=== PATIENT | female | born 1985 | race African-American/Black ===

== ENCOUNTER 2020-10-04 20:58 | Emergency (ER) | payer MEDICAID ==
[2020-10-04] MEDS ORDERED: Sodium Chloride 0.9% 10 ML Syringe FLUSH PRN (21:14)
[2020-10-04] MEDS ORDERED: Diazepam 5 MG Tab PO ONE (21:15)
[2020-10-04] MEDS ORDERED: fentaNYL 100 MCG/2 ML SDV IVPUSH ONE (21:15)
[2020-10-04] MEDS ORDERED: Ketorolac 30 MG/ML SDV IVPUSH ONE (21:16)
--- NOTE | 2020-10-04 21:22 | EDM.PDOC ---
ED HPI GENERAL MEDICAL PROBLEM - General Time Seen by Provider: 10/04/20 21:08 Source of Information: Reports: Patient - History of Present Illness INITIAL COMMENTS - FREE TEXT/NARRATIVE: Evita is a 35 y/o female who comes to the ER with pain in the left side of her chest. She is driving from [place] to [place], [place] and has been driving since yesterday at 3 pm. She first noted the pain in her left rib region about a week ago, denied any specific injury. 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 She reports that the sx she is having today are what her sx started out like in March. She is slightly SOB, worse when she breaths in. - Related Data Allergies Allergy/AdvReac Type Severity Reaction Status Date / Time No Known Allergies Allergy Verified 10/04/20 22:09 Home Meds: Home Meds Apixaban [Eliquis] 10 mg PO BID 7 Days #28 10/04/20 [Rx] Review of Systems - Review of Systems Review Of Systems: See Below Constitutional: Reports: No Symptoms Eyes: Reports: No Symptoms Ears: Reports: No Symptoms Nose: Reports: No Symptoms Mouth/Throat: Reports: No Symptoms Respiratory: Reports: Shortness of Breath, Pleuritic Chest Pain Cardiovascular: Reports: No Symptoms GI/Abdominal: Reports: No Symptoms Genitourinary: Reports: No Symptoms Musculoskeletal: Reports: No Symptoms Skin: Reports: No Symptoms Neurological: Reports: No Symptoms Psychiatric: Reports: No Symptoms ED EXAM, GENERAL - Physical Exam Exam: See Below General Appearance: Alert, WD/WN (Adult female, appears uncomfortable and sitting on edge of ER cart for comfort.) Eye Exam: Bilateral Eye: PERRL Ears: Hearing Grossly Normal Nose: Normal Inspection Throat/Mouth: Normal Lips, Normal Voice Head: Atraumatic, Normocephalic Neck: Supple Respiratory/Chest: No Respiratory Distress, Lungs Clear, Other (+tenderness palpated along left rib region adn muscle tightness) Cardiovascular: Regular Rate, Rhythm, No Murmur GI/Abdominal: Normal Bowel Sounds, Soft, Non-Tender (Female) Exam: Deferred Rectal (Female) Exam: Deferred Back Exam: Normal Inspection Extremities: Normal Inspection, Normal Range of Motion, Normal Capillary Refill Neurological: Alert, Oriented, CN II-XII Intact, Normal Cognition, No Motor/Sensory Deficits Psychiatric: Normal Affect Skin Exam: Warm, Dry, Intact, Normal Color Lymphatic: No Adenopathy Course - Vital Signs Text/Narrative:: 2107 The patient was seen by the HEAT TREAT FURNACE OPERATOR. Lasb, EKG, adn CTA Chest ordered. HEAT TREAT FURNACE OPERATOR offered patient Fentanyl and Valium for pain, but she declined and wanted to try Toradol first stating that she was needing to drive to [place] yet tonight. 2209 Feeling better now and more relaxed. Awaiting CT results. Labs reviewed. 2242 CT results reviewed, noted Acute left pulmonary embolus with left upper and left lower lobe ischemia/infarction. Discussed with patient. HEAT TREAT FURNACE OPERATOR advised she go to [facility] ER for further care. Patient refusing to go at this time and reports she needs to get her kids to her mother's house in [place]. HEAT TREAT FURNACE OPERATOR contacted [facility] and discussed case with Dr Healy in the ER. Will have patient sign out AMA. AMA This patient has elected to leave against medical advice. In my opinion, the patient has capacity to leave AMA. The patient is clinically sober, free from distracting injury, appears to have intact insight and judgment and reason, and in my opinion has capacity to make decisions. I explained to the patient that her symptoms are consistent with a left pulmonary embolus and the patient verbalized understanding of my concerns. I had a discussion with the patient about her workup and results.. I informed the patient that the next step in diagnosis and treatment would be to transfer her to [place] to a larger facility, and she verbalized understanding of this as well. I explained the risks of leaving without further workup or treatment, which included reasonably foreseeable complications such as , serious injury, permanent disability, and stroke from embolus. The patient is refusing any further care, specifically trasnfer, and is leaving against medical advice. I am unable to convince the patient to stay. I have also explained that she is welcome to return to the ER for further evaluation whenever. I have asked the patient to follow up with their primary doctor as soon as possible. I have answered all her questions. I have advised her to increased her Eliquis dose to 5mg 2 tablets po BID x 7 days. Patient signed the AMA paperwork. She left the ER ambulatory in stable condition. - Orders/Labs/Meds Orders: Active Orders 24 hr Category Date Time Status EKG Documentation Completion [RC] STAT Care 10/04/20 21:14 Active Ang Chest [CT] Stat Exams 10/04/20 21:14 Taken Sodium Chloride 0.9% [Saline Flush] Med 10/04/20 21:14 Active 10 ml FLUSH ASDIRECTED PRN Saline Lock Insert [OM.PC] Stat Oth 10/04/20 21:14 Ordered Medication Orders Sodium Chloride (Sodium Chloride 0.9% 10 Ml Syringe) 10 ml FLUSH ASDIRECTED PRN PRN Reason: Keep Vein Open Labs: Laboratory Tests 10/04/20 10/04/20 10/04/20 Range/Units 21:20 21:20 21:20 WBC 7.4 (4.0-10.0) x10^3/uL RBC 4.05 (4.00-5.50) x10^6/uL Hgb 11.9 L (12.0-16.0) g/dL Hct 35.7 (33.0-47.0) % MCV 88.1 (78.0-93.0) fL MCH 29.4 (26.0-32.0) pg MCHC 33.3 (32.0-36.0) g/dL RDW Coeff of Les 14.1 (10.0-15.0) % Plt Count 358 (130-400) x10^3/uL Neut % (Auto) 54.5 (50.0-80.0) % Lymph % (Auto) 33.2 (25.0-50.0) % [place] % (Auto) 6.3 (2.0-11.0) % Eos % (Auto) 5.5 H (0.0-4.0) % Baso % (Auto) 0.5 (0.2-1.2) % PT 10.2 (9.9-12.5) SEC INR 0.9 L (2.0-3.5) APTT 24.7 L (25.6-32.8) SEC D-Dimer, Quantitative (<=0.58) mg/LFEU Sodium 140 (136-145) mmol/L Potassium 4.0 (3.5-5.1) mmol/L Chloride 103 (98-107) mmol/L Carbon Dioxide 26 (21-32) mmol/L Anion Gap 15.0 (5-15) mmol/L BUN 10 (7-18) mg/dL Creatinine 0.9 (0.55-1.02) mg/dL Est Cr Clr Drug Dosing TNP Estimated GFR (MDRD) > 60 Glucose 92 (70-99) mg/dL Calcium 8.6 (8.5-10.1) mg/dL Corrected Calcium 9.1 (8.5-10.1) mg/dL Total Bilirubin 0.6 (0.2-1.0) mg/dL AST 12 L (15-37) U/L ALT 20 (14-59) U/L Alkaline Phosphatase 74 (46-116) U/L Troponin I High Sens < 4 (<=51) ng/L C-Reactive Protein 3.7 H (<=0.9) mg/dL Total Protein 8.5 H (6.4-8.2) g/dL Albumin 3.4 (3.4-5.0) g/dL Globulin 5.1 Albumin/Globulin Ratio 0.67 // Range/Units 21:20 WBC (4.0-10.0) x10^3/uL RBC (4.00-5.50) x10^6/uL Hgb (12.0-16.0) g/dL Hct (33.0-47.0) % MCV (78.0-93.0) fL MCH (26.0-32.0) pg MCHC (32.0-36.0) g/dL RDW Coeff of Les (10.0-15.0) % Plt Count (130-400) x10^3/uL Neut % (Auto) (50.0-80.0) % Lymph % (Auto) (25.0-50.0) % [place] % (Auto) (2.0-11.0) % Eos % (Auto) (0.0-4.0) % Baso % (Auto) (0.2-1.2) % PT (9.9-12.5) SEC INR (2.0-3.5) APTT (25.6-32.8) SEC D-Dimer, Quantitative 1.68 H (<=0.58) mg/LFEU Sodium (136-145) mmol/L Potassium (3.5-5.1) mmol/L Chloride (98-107) mmol/L Carbon Dioxide (21-32) mmol/L Anion Gap (5-15) mmol/L BUN (7-18) mg/dL Creatinine (0.55-1.02) mg/dL Est Cr Clr Drug Dosing Estimated GFR (MDRD) Glucose (70-99) mg/dL Calcium (8.5-10.1) mg/dL Corrected Calcium (8.5-10.1) mg/dL Total Bilirubin (0.2-1.0) mg/dL AST (15-37) U/L ALT (14-59) U/L Alkaline Phosphatase (46-116) U/L Troponin I High Sens (<=51) ng/L C-Reactive Protein (<=0.9) mg/dL Total Protein (6.4-8.2) g/dL Albumin (3.4-5.0) g/dL Globulin Albumin/Globulin Ratio Meds: Medications Generic Name Dose Route Start Last Admin Trade Name Freq PRN Reason Stop Dose Admin Sodium Chloride 10 ml 10/04/20 21:14 Sodium Chloride 0.9% 10 Ml Syringe FLUSH ASDIRECTED PRN Keep Vein Open Discontinued Medications Generic Name Dose Route Start Last Admin Trade Name Freq PRN Reason Stop Dose Admin Diazepam 10 mg 10/04/20 21:15 Diazepam 5 Mg Tab PO 10/04/20 21:16 ONETIME ONE Fentanyl 100 mcg 10/04/20 21:15 Fentanyl 100 Mcg/2 Ml Sdv IVPUSH 10/04/20 21:16 ONETIME ONE Iopamidol 100 ml 10/04/20 21:33 10/04/20 22:10 Iopamidol 612 Mg/Ml 100 Ml Bottle IVPUSH 10/04/20 21:34 100 ml ONETIME ONE Administration Ketorolac Tromethamine 30 mg 10/04/20 21:16 Ketorolac 30 Mg/Ml Sdv IVPUSH 10/04/20 21:17 ONETIME ONE - Radiology Interpretation Free Text/Narrative:: CTA Chest=no acute findings Departure - Departure Time of Disposition: 23:18 Disposition: Against Medical Advice 07 Clinical Impression: Clotting disorder Acute pulmonary embolus Qualifiers: Pulmonary embolism type: unspecified Acute cor pulmonale presence: unspecified Qualified Code(s): I26.99 - Other pulmonary embolism without acute cor pulmonale - Discharge Information *PRESCRIPTION DRUG MONITORING PROGRAM REVIEWED*: Not Applicable *COPY OF PRESCRIPTION DRUG MONITORING REPORT IN PATIENT [place]: Not Applicable Prescriptions: Apixaban [Eliquis] 10 mg PO BID 7 Days #28 Instructions: Pulmonary Embolism Referrals: PCP,Not In Area [Primary Care Provider] - Forms: Refusal of Care AMA Additional Instructions: -Increase Eliquis 5mg to 2 tablets twice daily for 7 days -Go to the nearest ER if your condition worsens -Seek medical care from your Specialist in [place] - My Orders Last 24 Hours: My Active Orders 10/04/20 21:14 EKG Documentation Completion [RC] STAT Ang Chest [CT] Stat Sodium Chloride 0.9% [Saline Flush] 10 ml FLUSH ASDIRECTED PRN Saline Lock Insert [OM.PC] Stat - Assessment/Plan Last 24 Hours: My Active Orders 10/04/20 21:14 EKG Documentation Completion [RC] STAT Ang Chest [CT] Stat Sodium Chloride 0.9% [Saline Flush] 10 ml FLUSH ASDIRECTED PRN Saline Lock Insert [OM.PC] Stat Assessment:: 1)Musculoskeletal Pain Plan: Patient left AMA
[2020-10-04] MEDS ORDERED: Iopamidol 612 MG/ML 100 ML Bottle IVPUSH ONE (21:33)
[2020-10-04 21:41] LABS: PTT,PARTIAL THROMBOPLSTIN TIME 24.7 SEC (25.6-32.8)
[2020-10-04 21:46] LABS: CHLORIDE,CL 103 mmol/L (98-107); SODIUM,NA 140 mmol/L (136-145)
[2020-10-04] MEDS ORDERED: Enoxaparin 100 MG/1 ML Syringe SUBCUT ONE (22:59)
--- NOTE | 2020-10-05 09:19 | CT ---
[id number] CT/CTA Chest Exam: CTA Chest Clinical Data: CHEST PAIN HISTORY OF PULMONARY EMBOLI COMPARISON: NO PREVIOUS SIMILAR EXAM IS AVAILABLE FINDINGS: The left lower lobe pulmonary artery is full of thrombus. Report called at time of exam No other pulmonary emboli are seen An infiltrate in the superior segment of the left lower lobe is noted This could represent infarction Minimal pulmonary parenchymal opacities also are seen in the left upper lobe that could also represent infarction The right lung is clear The mediastinum shows no mass or emboli IMPRESSION: LEFT-SIDED PULMONARY EMBOLI Shiraz Bojorquez MD 10/05/20 0943 Thank you for allowing us to participate in the care of your patient.
== END 2020-10-04 23:15 | disposition left against medical advice (07) ==
LOC: VM.ED 20:58
DX: I26.99 Other pulmonary embolism without acute cor pulmonale (principal); D68.9 Coagulation defect, unspecified; Z79.01 Long term (current) use of anticoagulants
CPT/HCPCS: 71275; 80053; 84484; 85025; 85379; 85610; 85730; 86140; 93005; 96374; 99284; 99285-25; J1885; Q9967